=== PATIENT | male | born 1950 | race Caucasian/White ===

== ENCOUNTER 2024-01-14 10:40 | Outpatient (CLI) | payer MEDICARE, SELFPAY ==
--- NOTE | ~2024-01-14 | MR_ITS ---
EXAMINATION: MR abdomen wo/w con DATE: 01/14/2024 12:01 INDICATION: Right kidney mass. TECHNIQUE: Magnetic resonance imaging (MRI) of the abdomen was performed without and with 20 mL Multi Bee intravenous contrast. COMPARISON: None. FINDINGS: Motion artifact is noted. There is diffuse hepatic steatosis. There is a 2.0 cm mass in left hepatic lobe with interrupted peripheral puddling of contrast, consistent with a hemangioma. There is a 2.4 c m hyperenhancing mass in left hepatic lobe. The gallbladder, spleen, pancreas, and adrenal glands are normal. There cysts in the kidneys measuring up to 14 mm on the right. There is cortical thinning of the kidneys. There is a 4.7 cm enhancing mass in right kidney. There are no dilated loops of bowel. There are no pathologically enlarged lymph nodes. There is no free intraperitoneal fluid. IMPRESSION: 1. Enhancing 4.7 cm mass in right kidney, consistent with renal cell carcinoma. 2. 2.4 cm hyperenhancing liver mass, most likely a hemangioma or focal nodular hyperplasia. Reviewed, dictated and finalized at location A.
== END 2024-01-14 10:41 | disposition home or self-care (01) ==
LOC: MICIMG 10:41
PROVIDERS: PCP Urology; Visit Provider Urology
DX: N28.89 Other specified disorders of kidney and ureter (principal)
CPT/HCPCS: 74183; A9577

== ENCOUNTER 2024-09-29 12:46 | Outpatient (CLI) | payer MEDICARE, SELFPAY ==
--- NOTE | ~2024-09-29 | MR_ITS ---
MRI of the abdomen: Clinical indication: Right renal mass. Technique: Coronal SSFSE ARC, WATER:coronal LAVA-FLEX, Coronal 2D FIESTA FatSat, Axial SSFSE BH ARC, Axial 3D DualEcho BH, Axial SSFSE-IR, Axial DWI b=500, Axial 2D FIESTA FatSat, pre and dynamic postco ntrast Axial LAVA ARC, postcontrast Coronal In and Opposed phase LAVA FLEX. Following intravenous adm inistration of 20 cc MultiHance gadolinium, T1-weighted fat-sat imaging was performed in the axial an d coronal planes. COMPARISON: 01/14/2024 Findings: Gallbladder unremarkable. The common bile duct is mildly prominent at 10 mm in diameter. No filling defects are seen within the CBD. No evidence of intrahepatic biliary ductal dilatation. The pancreatic duct is normal in size. 2 left hepatic lobe T2 hyperintense lesions demonstrate peripheral irregular discontinuous enhancemen t with progressive filling, compatible with hepatic hemangiomas. Spleen, pancreas, adrenals, left kid chelsey appear normal. Status post right nephrectomy. The aorta and the paraaortic regions appear normal. Impression: No evidence for active malignancy or metastatic disease. Status post right nephrectomy. Left hepatic lobe hemangiomas. Reviewed, dictated and finalized at [facility]. Impression: No evidence for active malignancy or metastatic disease. Status post right neph rectomy. Left hepatic lobe hemangiomas.
--- OUTSIDE RECORDS SUMMARY | 2024-09-29 13:37 | XMS_ITS | Clinical Summary ---
Author Organization [facility] Address [address] [place] [address] Phone Care Team Providers Care Machinist Class B Name Role Phone Jd Kendrick MD Primary Care Provider [phone] [phone] Social History Tobacco Use Types Packs/Day Years Used Date Smoking Tobacco: Never Assessed Sex and Gender Information Value Date Recorded Sex Assigned at Not on file Legal Sex Male 11:58 PM CDT Gender Identity Not on file Sexual Orientation Not on file Plan of Treatment Health Maintenance Due Date Last Done Comments Hepatitis C Virus (HCV) Screening 1950 TdaP Immunization 1950 Cologuard 1994 Colonoscopy 1994 Colorectal Cancer Screening 1994 Immunochemical Fecal Occult Blood 1994 Pneumococcal Immunization (5 0+ years) (1 of 1 - PCV) 11/21/1999 Zoster Immunization (1 of 2) 11/21/1999 SARS-COV-2 Immunization ( - season) 2023 Respiratory Syncytial Virus (RSV) Immunization (Adult) (1 - 1-dose 75+ series) 2024 Influenza Immunization (Seas on Ended) 2024 Hepatitis B Immunization Aged Out No longer eligible based on patient's age to complete this topic Human Papillomavirus (HPV) Immunization Aged Out No longer eligible b ased on patient's age to complete this topic Meningococcal Immunization (ACWY) Aged Out No longer eligible based on patient's age to complete this topic Rotavirus Immunization Aged Out No lo nger eligible based on patient's age to complete this topic Insurance MEDICARE C HUMANA Care Teams Machinist Class B Relationship Specialty Start Date End Date [place] [address] [id number] PCP - General Internal Medicine 12/11/17
--- OUTSIDE RECORDS SUMMARY | 2024-09-29 13:38 | XMS_ITS | Referral Summary ---
Author Organization [address] Address [address] [place] [id number] Care Team Providers Care Instrumentation Tech Name Role Phone Jd Kendrick MD Primary Care Provider [phone] Cuba Chang MD Unavailable [phone] Encounters Date Type Department Care Team Description 07/01/2024 2:00 PM CDT Office Visit [facility] Sleep Medicine at [address] [place] [address] Elisha Franklin MD FAHEEM (obstructive sleep apnea) (Primary Dx); Hypersomnia; Obesity, unspecified class, unspecified obesity type, unspecified whether serious comorbidity present from Last 3 Months Allergies No known active allergies Medications allopurinoL (ZYLOPRIM) 300 mg tablet Take 1 tablet (300 mg total) by mouth every morning 1 Active tamsulosin (FLOMAX) 0.4 mg extended release capsule Take 1 capsule (0.4 mg total) by mouth every evening Active UNABLE TO FIND Take by mouth 2 (two) times a day Total Beets Active ooucsnza-qla-ts ond-hyaluron ac 713-98-114-1 mg tablet Take by mouth 2 (two) times a day Active aspirin 81 mg enteric coated tablet Take 1 tablet (81 mg total) by mouth daily Hold for 3 days 4 Active metoprolol tartrate (LOPRESSOR) 50 mg immediate release tablet TAKE 1 TABLET EVERY DAY 90 tablet 3 4 Active Additional Information Patient taking differently:50 mg oral2 times daily, Reported on 07/01/2024 bumetanide (BUMEX) 2 mg tablet TAKE 3 TABLETS EVERY DAY 270 tablet 3 5 Active Additional Information Patient taking differently: 2 times daily, Reported on 07/01/2024 amLODIPine (NORVASC) 5 mg tablet Take 1 tablet (5 mg total) by mouth daily 90 tablet 3 5 Active Active Problems Problem Noted Date Diagnosed Date Kidney mass 01/28/2024 FAHEEM (obstructive sleep apnea) 04/12/2023 Morbid (severe) obesity due to excess calories 0 10/18/2021 Body mass index (BMI) 45.0-49.9, adult 2 Class 3 severe obesity due t o excess calories with serious comorbidity and body mass index (BMI) of 45.0 to 49.9 in adult 04/06/2021 Assessment & Plan (04/06/2021 3:30 PM GLYCERIN OPERATOR): Discussed healthy diet and importance of regular physical activity. Encounter for screening for lipid disorder 04/06 Encounter for screening for lipoid disorders 11/2019 Assessment & Plan (04/06/2021 3:23 PM GLYCERIN OPERATOR): Results for orders placed or performed in visit on 04/06/21 POCT lipid panel Result Value Ref Range Cholesterol, POC 199 mg/dL HDL, POC 52 mg/dL Triglycerides, POC 208 mg/dL LDL, Direct, POC 105 mg/dL Chol/HDL Ratio, POC 3.8 Non-HDL Cholesterol, POC 146 mg/dL Cholesterol Total, POC 199 mg/dL Reviewed need to monitor carbs and sugar intake. Will continue to monitor. Assessment & Plan (03/29/2020 3:08 PM GLYCERIN OPERATOR): 08/09/17 TD=006 HDL=52 FX=320 IDB=721 TC/HDL=3.3 08/13/18 JV=900 HDL=48 GZ=796 LDL=91 TC/HDL=3.5 03/29/20 TC= 199 HDL =59 WR=232, JOQ=353 TC/HDL =3.4 Copy of results given to Avery Izquierdo. Reviewed results at time of appointment. Discussed diet changes to improve TC/LDL. Encounter for prostate cancer screening 03/29/20 Assessment & Plan (03/29/2020 2:24 PM GLYCERIN OPERATOR): PSA ordered; will contact with results when received. Colon cancer screening 03/29/2020 Assessment & Plan (03/29/2020 3:10 PM GLYCERIN OPERATOR): Referral to Dr Fenton's office for colonoscopy Aware that his office will call her to set up testing. Osteoarthritis of multiple joints 08/17/2019 Assessment & Plan (04/06/2021 3:20 PM GLYCERIN OPERATOR): Doing well on meloxicam for OA. Assessment & Plan (08/17/2019 11:24 AM CDT): Has recovered well from all his previous surgeries. He continues to use glucosamine chondroitin supplement. Refused influenza vaccine 02/09/2019 Assessment & Plan (03/29/2020 2:10 PM GLYCERIN OPERATOR): Discussed and the patient refuses immunization today. Educated regarding the need to vaccinate for personal protection and to limit the viruses in the community to protect those most vulnerable. Assessment & Plan (02/09/2019 9:00 AM CDT): Discussed and the patient refuses immunization today. Educated regarding the need to vaccinate for personal protection and to limit the viruses in the community to protect those most vulnerable. Annual physical exam 02/09/2019 Assessment & Plan (04/06/2021 3:23 PM GLYCERIN OPERATOR): Preventive exam; reviewed recommended preventive screenings and vaccinations. Encourage annual flu vaccine. Wear sunscreen/protective clothing when outdoors. Assessment & Plan (03/29/2020 2:09 PM GLYCERIN OPERATOR): 1. Eat a healthy diet: focus on lean meats and proteins, more fruits, vegetables and whole grains and low in sugars and fats. Limit red meat and avoid processed meat. 2. Maintain a healthy weight; avoid being overweight. Aim for a normal body mass index (BMI) of 18.5-24.9. Help learning to eat healthier, we can set up appointment with electric train driver/corporate administrative assistant. 3. Have an active lifestyle, strive for 30 minutes of moderate exercise 5 times a week and strength or resistance training at least twice a week. 4. Use broad-spectrum (UVA+UVB) sunscreen with SPF 30 or greater, is water resistant, limit time spent in the sun (10 am-4pm), wear hat, wear UV protective clothing, wear sunglasses. Never use a tanning bed. Skin that was irradiated may be more sensitive over your lifetime. 5. Does not smoke or chew tobacco. 6. Limit alcohol intake, 2 drinks per day for a man. Assessment & Plan (02/09/2019 9:00 AM CDT): 1. Eat a healthy diet: focus on lean meats and proteins, more fruits, vegetables and whole grains and low in sugars and fats. Limit red meat and avoid processed meat. 2. Maintain a healthy weight; avoid being overweight. Aim for a normal body mass index (BMI) of 18.5-24.9. Help learning to eat healthier, we can set up appointment with electric train driver/corporate administrative assistant. 3. Have an active lifestyle, strive for 30 minutes of moderate exercise 5 times a week and strength or resistance training at least twice a week. 4. Use broad-spectrum (UVA+UVB) sunscreen with SPF 30 or greater, is water resistant, limit time spent in the sun (10 am-4pm), wear hat, wear UV protective clothing, wear sunglasses. Never use a tanning bed. Skin that was irradiated may be more sensitive over your lifetime. 5. Do not smoke or chew tobacco; participate in a smoking cessation program. 6. Limit alcohol intake, 2 drinks per day for a man. Hypertension, essential 02/09/2019 Assessment & Plan (04/06/2021 3:30 PM GLYCERIN OPERATOR): BP well controlled. Reviewed BP goal of <140/90. No changes in current regimen. Discussed need to monitor sodium and improve diet and exercise. Assessment & Plan (03/29/2020 2:09 PM GLYCERIN OPERATOR): The blood pressure is under good control. Ideally it should be under 130/80. Continue medications without adjustment. Continue efforts to eat well (4-5 fruits and veggies) daily and exercise for about 30 min nearly every day. Watch salt intake, keeping to less than 2000mg per day. Limit alcohol. Include strategies to cope with stress. Labs ordered today; will contact w/results once received. Assessment & Plan (02/09/2019 9:00 AM CDT): The blood pressure is under good control. Ideally it should be under 130/80. Continue medications without adjustment. Continue efforts to eat well (4-5 fruits and veggies) daily and exercise for about 30 min nearly every day. Watch salt intake, keeping to less than 2000mg per day. Limit alcohol. Include strategies to cope with stress. To call to have labs ordered prior to f/u appt in 6 mos. Pneumococcal vaccine refused 02/09/2019 Assessment & Plan (03/29/2020 2:10 PM GLYCERIN OPERATOR): Discussed and the patient refuses immunization today. Educated regarding the need to vaccinate for personal protection. Assessment & Plan (02/09/2019 9:01 AM CDT): Discussed and the patient refuses immunization today. Educated regarding the need to vaccinate for personal protection. Resolved Problems Problem Noted Date Diagnosed Date Resolved Date Screen for colon cancer 04/01/202003/22 Overview (04/01/2020): Added automatically from request for surgery [id number] Morbid obesity with BMI of 40.0-44.9, adult 02/09/2019 04/06/2021 Assessment & Plan (03/29/2020 3:09 PM GLYCERIN OPERATOR): Reviewed need to lose weight, reviewed health benefits. Reviewed recommendations for daily intake & activity 20-30 minutes/day. Discussed healthy diet and importance of regular physical activity. Has not been using recumbent bicycle. Has been active in [employer] lately. Assessment & Plan (02/09/2019 8:51 AM CDT): Has recumbent bicycle that he uses on occasion. Does yard work daily. Reviewed need to lose weight, reviewed health benefits. Reviewed recommendations for daily intake & activity 20-30 minutes/day. Discussed healthy diet and importance of regular physical activity. Immunizations Immunization Administration Dates Next Due Influenza, Unspecified 07/23/2023(Deferr ed: Patient Refused),12/21/2022(Deferred: Patient Refused),10/19/2022(Deferred: Patient Refused),10/18/2021(Deferred: Patient Refused),10/18/2021(Deferred: Patient Refused),04/06/2021(Deferred: Patient Refused),12/21/2020(Deferred: Patient Refused),12/21/2020(Deferred: Patient Refused),03/29/2020(Deferred: Patient Refused),01/21/2020(Deferred: Patient Refused),04/22/2019(Deferred: Patient Refused),02/09/2019(Deferred: Patient Refused),02/09/2019(Deferred: Patient Refused),04/22/2018(Deferred: Patient Refused),04/22/2018(Deferred: Patient Refused),02/20/2018(Deferred: Patient Refused) Pneumococcal Conjugate PCV 13 04/22/2019 (Deferred: Patient Refused),02/09/2019(Deferred: Patient Refused),08/06/2018(Deferred: Patient Refused) Pneumococcal Polysaccharide PPV23 2019(Deferred: Patient Refused),02/09/2019(Deferred: Patient Refused),08/06/2018(Deferred: Patient Refused) ZOSTER LIVE 02/09/2019(Deferred: Patient Ref used) ZOSTER Recombinant 02/09/2019(Deferred: Patient Refused),02/09/2019(Deferred: Patient Refused) Social History Tobacco Use Types Packs/Day Years Used Date Smoking Tobacco: Never Smokeless Tobacco: Never Tobacco Cessation:Counseling Given: Not Answered Alcohol Use Standard Drinks/Week Comments Yes 30 (1 standard drink = 0.6 oz pu re alcohol) [facility] Utilities Answer Date Recorded In the past 12 months has [employer], [employer], or water [employer] threatened to shut off services in your home? No 02/26/2024 Social Connection and Isolat ion Panel [NHANES] Answer Date Recorded In a typical week, how many times do you talk on the phone with family, friends, or neighbors? More than three times a week 02/26/2024 How often do you get togethe r with friends or relatives? Never 02/26/2024 How often do you attend chur ch or roman catholic services? More than 4 times per year 02/26/2024 Do you belong to any clubs o r organizations such as religion groups, unions, fraternal or athletic groups, or school groups? Yes 02/26/2024 How often do you attend meet ings of the clubs or organizations you belong to? More than 4 times per year 02/26/2024 Are you , , di vorced, , never , or living with a partner? 02/26/2024 AUDIT-C Answer Date Recorded Q1: How often do you have a drink containing alcohol? 4 or more times a week 02/13/2024 Q2: How many drinks containi ng alcohol do you have on a typical day when you are drinking? 3 or 4 Q3: How often do you have si x or more drinks on one occasion? Never 02/13/2024 Overall Financial Resource Strain (CARDIA) Answe r Date Recorded How hard is it for you to pa y for the very basics like food, housing, medical care, and heating? Not hard at all 02/26/2024 PHQ-2 Answer Date Recorded PHQ-2 Total Score (If total score is 3 or more points, staff should administer the PHQ-9) 0 10/28/2023 Hunger Vital Sign Answer Date Recorded Within the past 12 months, y ou worried that your food would run out before you got the money to buy more. Never true 02/26/20 24 Within the past 12 months, t he food you bought just didn't last and you didn't have money to get more. Never true 02/26/2024 PRAPARE - Transportation Answer Date Re corded In the past 12 months, has l ack of transportation kept you from medical appointments or from getting medications? No 09/2023 In the past 12 months, has l ack of transportation kept you from meetings, work, or from getting things needed for daily living? No 02/26/2024 Housing Stability Vital Sign Answer Byron e Recorded In the last 12 months, was t here a time when you were not able to pay the mortgage or rent on time? No 02/26/2024 In the past 12 months, how m any times have you moved where you were living? 0 02/26/2024 At any time in the past 12 m [facility], were you homeless or living in a group home (including now)? No 02/26/2024 Personal Safety Answer Date Recorded Have you ever been in or are you currently in a harmful physical or emotional relationship or is someone making you feel afraid or unsafe? Denies 02/25/2024 Sex and Gender Information Value Date Recorded Sex Assigned at Not on file Legal Sex Male 6:16 PM GLYCERIN OPERATOR Gender Identity Male 03/22/2020 11:03 AM GLYCERIN OPERATOR Sexual Orientation Straight 03/22/2020 11 :03 AM GLYCERIN OPERATOR Last Filed Vital Signs Vital Sign Reading Time Taken Comments Blood Pressure 103/68 07/01/2024 2:01 PM CDT Pulse 73 07/01/2024 2:01 PM CDT Temperature 36.7 C (98 F) 02/27/2024 7:49 AM GLYCERIN OPERATOR Respiratory Rate 16 02/27/2024 7:49 AM GLYCERIN OPERATOR Oxygen Saturation 95% 07/01/2024 2:01 PM CDT Inhaled Oxygen Concentration - - Weight 144.4 kg (318 lb 6.4 oz) 07/01/2024 2:01 PM CDT Height 180.3 cm (5' 10.98) 07/01/2024 2:01 PM C DT Body Mass Index 44.43 07/01/2024 2:01 PM CDT Plan of Treatment Not on file Procedures Procedure Name Priority Date/Time Associated Diagnosis Comments COLONOSCOPY 05/24/2020 9:41 AM GLYCERIN OPERATOR from Last 3 Months or Most Recently Relevant to Health Maintenance Results * COLONOSCOPY (05/24/2020 9:41 AM GLYCERIN OPERATOR) Anatomical Region Laterality Modality Other Narrative Procedure Note Arya Fenton MD - 05/24/2020 9:41 AM CST [facility] Patient Name: Avery Izquierdo Procedure Date: 05/24/2020 9:41 AM Date of : 1950 Admit Type: Outpatient Age: 69 Gender: Male Attending MD: Arya Fenton M.D. Room: [facility] ENDOSCOPY ROOM 2 Note Status: Finalized Patient Profile: Refer to note in patient chart for documentation of history and physical. Procedure: Colonoscopy Indications: High risk colon cancer surveillance: Personalhistory of colonic polyps, Last colonoscopy: April 2010 Referring MD: Jd Kendrick M.D. Providers: Arya Fenton M.D. Impression: - Hemorrhoids found on perianal exam. - One 3 mm polyp in the ascending colon, removedwith a jumbo cold forceps. Resected and retrieved. - Diverticulosis in the sigmoid colon and in the descending colon. - The examination was otherwise normal. Recommendation: - Discharge patient to home. - Resume previous diet. - Continue present medications. - Await pathology results. - Repeat colonoscopy in 5 years for surveillance. - Return to primary care physician as previously scheduled. Medicines: Propofol per Anesthesia Complications: No immediate complications. Estimated Blood Loss: Estimated blood loss: none. Procedure: Pre-Anesthesia Assessment: - This assessment was completed [Time ofAssessment] prior to the administration of sedation. The benefits, risks and alternatives of theprocedure and sedation were discussed and informed consentwas obtained. All questions were answered. Please referto the signed informed consent document in the medical record. Bowel prep was administered using a single dose. The bowel preparation used was Miralax via single dose instruction. The bowel preparation used was bisacodyl tablets [Single vs Split Dose]. The scope was passed under direct vision. TheColonoscope [id number] was introduced through the anus and advanced to the the cecum, identified by appendiceal orifice and ileocecal valve. The colonoscopy was performed without difficulty. The patient tolerated the procedure well. The qualityof the bowel preparation was adequate to identifypolyps 6 mm and larger in size. Findings: Hemorrhoids were found on perianal exam. A 3 mm polyp was found in the ascending colon. The polyp was sessile. The polyp was removed with a jumbo cold forceps. Resection andretrieval were complete. Verification of patient identification for thespecimen was done by the physician and nurse using the patient's name andbirth date. Estimated blood loss was minimal. Multiple small and large-mouthed diverticula were found in thesigmoid colon and descending colon. The exam was otherwise without abnormality. Electronically signed by Arya Fenton M.D. Arya Fenton M.D. 05/24/2020 10:40:32 AM Number of Addenda: 0 Note Initiated On: 05/24/2020 9:41 AM Procedure Code(s): --- Professional --- 70859, Colonoscopy, flexible; with biopsy, single or multiple Diagnosis Code(s): --- Professional --- K57.30, Diverticulosis of large intestine without perforation orabscess without bleeding K63.5, Polyp of colon K64.9, Unspecified hemorrhoids Z86.010, Personal history of colonic polyps CPT copyright 2019 [employer]. All rights reserved. The codes documented in this report are preliminary and upon chimney construction supervisor reviewmay be revised to meet current compliance requirements. Recognized by the [employer] for promoting quality in endoscopy Arya Fenton MD ENDOSCOPY PROCEDURES Final Re sult from Last 3 Months or Most Recently Relevant to Health Maintenance Insurance [employer] MEDICARE HMO HU[employer]NA MEDICARE HMO HU[employer]NA MEDICARE HMO Advance Directives For more information, please contact: [phone] * Full Code (Latest Code Status on File) Date Activated Date Inactivated Comments 02/25/2024 1:29 PM 02/27/2024 1:55 PM * Full Code Date Activated Date Inactivated Comments 05/24/2020 11:24 AM 05/24/2020 3:25 PM * Full Code Date Activated Date Inactivated Comments 05/24/2020 9:33 AM 05/24/2020 11:24 AM Care Teams Instrumentation Tech Relationship Specialty Start Date End Date Jd Kendrick MD [address] [place] [id number] PCP - General Family Medicine 12/26/17 Cuba Chang MD [address] [place] [address] Consulting Physician Urology 02/27/24
--- OUTSIDE RECORDS SUMMARY | 2024-09-29 13:38 | XMS_ITS | Clinical Summary ---
Author Organization [address] Address [address] [place] [id number] Care Team Providers Care Ship Construction Teacher Name Role Phone Jd Kendrick MD Primary Care Provider [phone] Cuba Chang MD Unavailable [phone] Allergies No known active allergies Medications allopurinoL (ZYLOPRIM) 300 mg tablet Take 1 tablet (300 mg total) by mouth every morning 1 Active tamsulosin (FLOMAX) 0.4 mg extended release capsule Take 1 capsule (0.4 mg total) by mouth every evening Active UNABLE TO FIND Take by mouth 2 (two) times a day Total Beets Active buraabcj-jle-pb ond-hyaluron 162-43-084-1 mg tablet Take by mouth 2 (two) [...] 04/06/2021 Assessment & Plan (04/06/2021 3:30 PM WAITER/WAITRESS FORMAL): Discussed healthy diet and importance of regular physical activity. Encounter for screening for lipid disorder 04/06 Encounter for screening for lipoid disorders 11/2019 Assessment & Plan (04/06/2021 3:23 PM WAITER/WAITRESS FORMAL): Results for orders placed or performed in [...] monitor. Assessment & Plan (03/29/2020 3:08 PM WAITER/WAITRESS FORMAL): 08/09/17 TA=902 HDL=52 NM=677 OFJ=790 TC/HDL=3.3 08/13/18 OD=660 HDL=48 CK=970 LDL=91 TC/HDL=3.5 03/29/20 TC= 199 HDL =59 FE=417, KAK=730 TC/HDL =3.4 Copy of results given to Avery Izquierdo. Reviewed results at time of appointment. Discussed diet changes to improve TC/LDL. Encounter for prostate cancer screening 03/29/20 Assessment & Plan (03/29/2020 2:24 PM WAITER/WAITRESS FORMAL): PSA ordered; will contact with results when received. Colon cancer screening 03/29/2020 Assessment & Plan (03/29/2020 3:10 PM WAITER/WAITRESS FORMAL): Referral to Dr Fenton's office for colonoscopy Aware that his office will call her to set up testing. Osteoarthritis of multiple joints 08/17/2019 Assessment & Plan (04/06/2021 3:20 PM WAITER/WAITRESS FORMAL): Doing well on meloxicam for OA. Assessment & Plan (08/17/2019 11:24 AM CDT): Has recovered well from all his previous surgeries. He continues to use glucosamine chondroitin supplement. Refused influenza vaccine 02/09/2019 Assessment & Plan (03/29/2020 2:10 PM WAITER/WAITRESS FORMAL): Discussed and the patient refuses immunization today. [...] 02/09/2019 Assessment & Plan (04/06/2021 3:23 PM WAITER/WAITRESS FORMAL): Preventive exam; reviewed recommended preventive screenings and vaccinations. Encourage annual flu vaccine. Wear sunscreen/protective clothing when outdoors. Assessment & Plan (03/29/2020 2:09 PM WAITER/WAITRESS FORMAL): 1. Eat a healthy diet: focus on lean meats and proteins, more fruits, vegetables and whole grains and low in sugars and fats. Limit red meat and avoid processed meat. 2. Maintain a healthy weight; avoid being overweight. Aim for a normal body mass index (BMI) of 18.5-24.9. Help learning to eat healthier, we can set up appointment with roads supervisor/lithograph press operator [employer]. 3. Have an active lifestyle, strive for [...] healthier, we can set up appointment with roads supervisor/lithograph press operator [employer]. 3. Have an active lifestyle, strive for [...] 02/09/2019 Assessment & Plan (04/06/2021 3:30 PM WAITER/WAITRESS FORMAL): BP well controlled. Reviewed BP goal of <140/90. No changes in current regimen. Discussed need to monitor sodium and improve diet and exercise. Assessment & Plan (03/29/2020 2:09 PM WAITER/WAITRESS FORMAL): The blood pressure is under good control. [...] 02/09/2019 Assessment & Plan (03/29/2020 2:10 PM WAITER/WAITRESS FORMAL): Discussed and the patient refuses immunization today. Educated regarding the need to vaccinate for personal protection. Assessment & Plan (02/09/2019 9:01 AM CDT): Discussed and the patient refuses immunization today. Educated regarding the need to vaccinate for personal protection. Resolved Problems Problem Noted Date Diagnosed Date Resolved Date Screen for colon cancer 04/01/202003/22 Overview (04/01/2020): Added automatically from request for surgery [id number] Morbid obesity with BMI of 40.0-44.9, adult 02/09/2019 04/06/2021 Assessment & Plan (03/29/2020 3:09 PM WAITER/WAITRESS FORMAL): Reviewed need to lose weight, reviewed health benefits. Reviewed recommendations for daily intake & activity 20-30 minutes/day. Discussed healthy diet and importance of regular physical activity. Has not been using recumbent bicycle. Has been active in [employer] & splitting wood lately. Assessment & Plan (02/09/2019 8:51 AM CDT): Has recumbent bicycle that he uses on occasion. Does yard work daily. Reviewed need to lose weight, reviewed health benefits. Reviewed recommendations for daily intake & activity 20-30 minutes/day. Discussed healthy diet and importance of regular physical activity. Encounters Date Type Department Care Team Description 07/01/2024 2:00 PM CDT Office Visit [facility] Sleep Medicine at [address] [place] [address] Elisha Franklin MD FAHEEM (obstructive sleep apnea) (Primary Dx); Hypersomnia; Obesity, unspecified class, unspecified obesity type, unspecified whether serious comorbidity present from Last 3 Months Immunizations Immunization Administration Dates Next Due Influenza, [...] ZOSTER Recombinant 02/09/2019(Deferred: Patient Refused),02/09/2019(Deferred: Patient Refused) Surgical History Surgery Date Site/Laterality Comments HIP ARTHROPLASTY 04/22/2008 - 04/21/2009 Bilateral Hip replacement, Dr Leonardo KNEE ARTHROPLASTY 04/22/2008 - 04/21/2009 Left Knee replacement, Dr Leonardo HERNIA REPAIR CARPAL TUNNEL RELEASE 04/22/2003 - 04/21/[address] Leonardo JOINT REPLACEMENT COLONOSCOPY 04/22/2010 - 05/22/2010 REMOVAL KIDNEY DONOR LIVING 02/25/2024 Right kidney removed cancerous Medical History Medical History Date Comments Hx Other Medical 2008 hip replacemant (other) Hx Other Medical infected toe [place]; Comments: medication removal of toe nail Arthritis Hypertension Sleep apnea Family History Medical History Relation Name Comments No Known Problems Brother 1 Linden No Known Problems Brother 2 Neal (twin) Heart disease Father Linden Hypertension Father Linden Stroke Father Linden Stroke; Cause o f : Stroke Heart disease Mother Crystal Hypertension Mother Crystal Hypertension; Other Mother Crystal Alive and well; No Known Problems Sister 1 Ashley No Known Problems Sister 2 Susu Diabetes Son 1 Leonardo Kidney disease Son 1 Leonardo No Known Problems Son 2 Piyush Relation Name Status Comments Brother 1 Linden Alive Brother 2 Neal (twin) Alive Father Linden (Age 64) Mother Crystal (Age 88) Sister 1 Ashley Alive Sister 2 Susu Alive Son 1 Leonardo Alive Son 2 Piyush Alive Social History Tobacco Use Types Packs/Day Years Used Date Smoking Tobacco: Never Smokeless Tobacco: Never Tobacco Cessation:Counseling Given: Not Answered Alcohol Use Standard Drinks/Week Comments Yes 30 (1 standard drink = 0.6 oz pu re alcohol) [facility] Utilities Answer Date Recorded In the past 12 months has [employer], gas, oil, or water [employer] threatened to shut off services in your [...] 02/26/2024 How often do you attend chur or zoroastrian services? More than 4 times per year 02/26/2024 Do you belong to any clubs o r organizations such as anabaptist groups, unions, fraternal or athletic groups, or [...] any time in the past 12 m [facility], were you homeless or living in a chcf (including now)? No 02/26/2024 Personal Safety Answer Date Recorded Have you ever been in or are you currently in a harmful physical or emotional relationship or is someone making you feel afraid or unsafe? Denies 02/25/2024 Sex and Gender Information Value Date Recorded Sex Assigned at Not on file Legal Sex Male 6:16 PM WAITER/WAITRESS FORMAL Gender Identity Male 03/22/2020 11:03 AM WAITER/WAITRESS FORMAL Sexual Orientation Straight 03/22/2020 11 :03 AM WAITER/WAITRESS FORMAL Obstetrics History Last Filed Vital Signs Vital Sign Reading Time Taken Comments Blood Pressure 103/68 07/01/2024 2:01 PM CDT Pulse 73 07/01/2024 2:01 PM CDT Temperature 36.7 C (98 F) 02/27/2024 7:49 AM WAITER/WAITRESS FORMAL Respiratory Rate 16 02/27/2024 7:49 AM WAITER/WAITRESS FORMAL Oxygen Saturation 95% 07/01/2024 2:01 PM CDT Inhaled Oxygen Concentration - - Weight 144.4 kg (318 lb 6.4 oz) 07/01/2024 2:01 PM CDT Height 180.3 cm (5' 10.98) 07/01/2024 2:01 PM C DT Body Mass Index 44.43 07/01/2024 2:01 PM CDT Plan of Treatment Health Maintenance Due Date Last Done Comments Hepatitis C Screening 1950 DTaP/Tdap/Td Vaccine (1 - Tdap) 1960 Hepatitis B Screening 11/21/1967 Pneumococcal vaccine 65+ (1 of 1 - PCV) 11/21/1999 Zoster Vaccine (1 of 2) 11/21/1999 Depression Screening 10/27/2024 10/28/2023, 07/23/2023, 10/19/2022, Additional history exists Well Visit 65+ 10/27/2024 10/28/2023, 09/22, 10/18/2021, Additional history exists Influenza Vaccine (Season Ended) 2024 Fall Risk Assessment 02/26/2025 02/27/2024, 10/28/2023, 07/23/2023, Additional history exists Colon Cancer Screening-Colonoscopy 05/24/2025 05/24/2020, 05/18/2010 Colon Cancer Screening-CT Colonography Discontinued 05/24/2020, 05/18/2010 Colon Cancer Screening-DNA Stool Discontinued 05/24/19 21, 05/18/2010 Colon Cancer Screening-FIT Discontinued 05/24/2020, Colon Cancer Screening-Sigmoidoscopy Discontinued 05/24/2020, 05/18/2010 Procedures Procedure Name Priority Date/Time Associated Diagnosis Comments COLONOSCOPY 05/24/2020 9:41 AM WAITER/WAITRESS FORMAL from Last 3 Months or Most Recently Relevant to Health Maintenance Results * COLONOSCOPY (05/24/2020 9:41 AM WAITER/WAITRESS FORMAL) Anatomical Region Laterality Modality Other Narrative Procedure Note Arya Fenton MD - 05/24/2020 9:41 AM CST [facility] Patient Name: Avery Izquierdo Procedure Date: 05/24/2020 9:41 AM Date of : 1950 Admit Type: Outpatient Age: 69 Gender: Male Attending MD: Arya Fenton M.D. Room: [facility]COPY ROOM 2 Note Status: Finalized Patient [...] scope was passed under direct vision. TheColonoscope [id number] was introduced through the anus and advanced [...] 9:41 AM Procedure Code(s): --- Professional --- 98181, Colonoscopy, flexible; with biopsy, single or multiple Diagnosis Code(s): --- Professional --- K57.30, Diverticulosis of large intestine without perforation orabscess without bleeding K63.5, Polyp of colon K64.9, Unspecified hemorrhoids Z86.010, Personal history of colonic polyps CPT copyright 2019 [employer]. All rights reserved. The codes documented in this report are preliminary and upon central scheduler reviewmay be revised to meet current compliance requirements. Recognized by the [employer] for promoting quality in endoscopy Arya Fenton MD ENDOSCOPY PROCEDURES Final Re sult from Last 3 Months or Most Recently Relevant to Health Maintenance Insurance [employer] MEDICARE HMO HU[employer] MEDICARE HMO HU[employer] MEDICARE HMO Advance Directives For more information, please contact: [phone] * Full Code (Latest Code Status on File) Date Activated Date Inactivated Comments 02/25/2024 1:29 PM 02/27/2024 1:55 PM * Full Code Date Activated Date Inactivated Comments 05/24/2020 11:24 AM 05/24/2020 3:25 PM * Full Code Date Activated Date Inactivated Comments 05/24/2020 9:33 AM 05/24/2020 11:24 AM Care Teams Ship Construction Teacher Relationship Specialty Start Date End Date Jd Kendrick MD [address] [place] [id number] PCP - General Family Medicine 12/26/17 Cuba Chang MD [address] [place] [address] Consulting Physician Urology 02/27/24
== END 2024-09-29 12:47 | disposition home or self-care (01) ==
PROVIDERS: PCP Family Medicine; Visit Provider Urology
DX: N28.89 Other specified disorders of kidney and ureter (principal)
CPT/HCPCS: 74183; A9577